=== PATIENT | male | born 1945 | race Caucasian/White ===

== ENCOUNTER 2016-04-11 10:41 | Observation (INO) | payer OTHER, BC ==
[~2016-04-11] VITALS: Ht 190.5 cm; Wt 102.3 kg
[2016-04-11 12:18] LABS: EOSINOPHIL (%) 0.4 % (0-5); EOSINOPHIL COUNT 0.1 K/uL (0-0.3); HEMATOCRIT 30.4 % (38.0-50.0); IMMATURE GRANULOCYTE (%) 0.2 % (0.0-0.7); IMMATURE GRANULOCYTE COUNT 0.2 K/uL; LYMPHOCYTE COUNT 0.4 K/uL (1.0-2.8); MCH 30.2 PG (29.0-34.0); MCHC 33.9 G/DL (30.0-36.0); MCV 89.1 FL (86-99); MEAN PLAT.VOLUME 10.2 uM^3 (9.0-12.4); MONOCYTE (%) 8.5 % (3-12); MONOCYTE COUNT 1.1 K/uL (0-0.8); NEUTROPHIL (%) 87.8 % (45-76); NEUTROPHIL COUNT 11.5 K/uL (1.8-6.4); PLATELET COUNT 184 K/uL (156-360); RBC DIS.WIDTH-CV 13.4 % (11.8-14.6); RBC DIS.WIDTH-SD 41.8 % (39-53); RED BLOOD COUNT 3.41 M/uL (4.00-5.50); WHITE BLOOD COUNT 13.1 K/uL (4.1-10.2)
[2016-04-11 12:27] LABS: CHLORIDE 105 mEq/L (99-109); POTASSIUM 4.4 mEq/L (3.7-5.4); SODIUM 135 mEq/L (136-147)
[2016-04-11 12:29] LABS: GLUCOSE 163 mg/dL (70-99)
[2016-04-11 12:30] LABS: ANION GAP 8 MEQ/L (2-14)
[2016-04-11 12:33] LABS: GFR ESTIMATE (CALCULATED) 54 mL/min/
[2016-04-11 12:34] LABS: UREA NITROGEN (BUN) 16 mg/dL (9-23)
[2016-04-11 12:39] LABS: TROP-I INTERPRETATION NEGATIVE; TROPONIN-I < 0.01 ng/mL (0.0-0.30)
[2016-04-11] MEDS ORDERED: LEVAQUIN500 MG PO (13:59)
[2016-04-11] MEDS ORDERED: DIOVAN80 MG PO (14:00)
[2016-04-11] MEDS ORDERED: TENORMIN25 MG PO (14:01)
[2016-04-11] MEDS ORDERED: VITAMIN D5000 UNI1 PO (14:02)
[2016-04-11] MEDS ORDERED: REQUIP1 MG PO (14:02)
[2016-04-11] MEDS ORDERED: PHENERGAN DM SYR1 ML PO (14:04)
[2016-04-11] MEDS ORDERED: ROSUVASTATIN CA10 MG PO (14:05)
[2016-04-11] MEDS ORDERED: CIALIS5 MG PO (14:05)
[2016-04-11] MEDS ORDERED: PIOGLITAZONE HC15 MG PO (14:06)
[2016-04-11] MEDS ORDERED: GLIPIZIDE XL5 MG PO (14:06)
[2016-04-11] MEDS ORDERED: JANUVIA100 MG PO (14:07)
[2016-04-11] MEDS ORDERED: KETOCONAZOLE120 ML TP (14:08)
[2016-04-11] MEDS ORDERED: VITAMIN B125000 MCG PO (14:09)
[2016-04-11] MEDS ORDERED: NIZORAL 2% CREA15 GM TP (14:09)
[2016-04-11] MEDS ORDERED: CHLORPHENIRAMINE4 MG PO (14:10)
[2016-04-11] MEDS ORDERED: ASPIRIN325 MG PO (14:11)
[2016-04-11] MEDS ORDERED: FERROUS FUMARAT63 MG PO (14:12)
[2016-04-11 14:33] LABS: ADD MIUA? YES; BILIRUBIN NEGATIVE; BLOOD LARGE; GLUCOSE (STRIP) NEGATIVE; KETONES TRACE; LEUKOCYTES MODERATE; NITRITE NEGATIVE; PROTEIN (STRIP) 100; SPECIFIC GRAVITY 1.013 (1.000-1.030); UROBILINOGEN 0.2 MG/DL (0.2-1.0)
[2016-04-11 14:38] LABS: COLOR LT.RED ((YELLOW))
[2016-04-11 14:53] LABS: RED BLOOD CELLS TNTC /HPF (0-5); WHITE BLOOD CELLS 30-40 /HPF (0-5)
[2016-04-11 14:54] LABS: BACTERIA 1+; CASTS PRESENT /LPF; CRYSTALS NONE SEEN; EPITHELIAL CELLS RARE; HYALINE CASTS 0-5 /LPF; MUCUS NONE SEEN
[2016-04-11 17:47] LABS: POINT-OF-CARE METER ID UU13113702
[2016-04-11 18:15] VITALS: BP 126/71
[2016-04-12 00:26] VITALS: BP 123/58
[2016-04-12 04:25] VITALS: BP 116/65
[2016-04-12 06:29] LABS: ANION GAP 7 MEQ/L (2-14); CHLORIDE 108 MEQ/L (99-109); GFR ESTIMATE (CALCULATED) 54 mL/min/; GLUCOSE 80 mg/dL (70-99); POTASSIUM 4.3 MEQ/L (3.7-5.4); SAMPLE HEMOLYSIS CHECK 0; SAMPLE ICTERIC CHECK 0; SAMPLE LIPEMIA CHECK 0; SODIUM 139 MEQ/L (136-147); UREA NITROGEN (BUN) 18 mg/dL (9-23)
[2016-04-12 06:41] LABS: HEMATOCRIT 28.2 % (38.0-50.0); MCH 30.2 PG (29.0-34.0); MCHC 33.3 G/DL (30.0-36.0); MCV 90.7 FL (86-99); MEAN PLAT.VOLUME 10.6 uM^3 (9.0-12.4); PLATELET COUNT 165 K/uL (156-360); RBC DIS.WIDTH-CV 13.8 % (11.8-14.6); RBC DIS.WIDTH-SD 45.5 % (39-53); RED BLOOD COUNT 3.11 M/uL (4.00-5.50); WHITE BLOOD COUNT 8.7 K/uL (4.1-10.2)
[2016-04-12 08:30] VITALS: BP 123/69
[2016-04-12 09:28] LABS: POINT-OF-CARE METER ID UU13113831
[2016-04-12 12:00] VITALS: BP 132/74
[2016-04-12 13:02] LABS: POINT-OF-CARE METER ID UU13113700
== END 2016-04-12 14:14 | disposition home or self-care (01) ==
LOC: EME → EDBD 10:41 → EME 10:41 → 5WEST 13:43 → EDOF 13:43 → 5WEST 17:58
PROVIDERS: Emergency Medicine; Hospitalist; Internal Medicine
DX: R55 Syncope and collapse (principal); Z98.890 Other specified postprocedural states; E11.9 Type 2 diabetes mellitus without complications; I10 Essential (primary) hypertension; Z82.49 Family history of ischemic heart disease and other diseases of the circulatory system; Z83.3 Family history of diabetes mellitus; Z82.0 Family history of epilepsy and other diseases of the nervous system; Z81.1 Family history of alcohol abuse and dependence
CPT/HCPCS: 70450; 80048; 81003; 82948; 84484; 85025; 85027; 87086; 93005; 99281; 99285; G0378; J0696; J1815; J7030; J7050